=== PATIENT | female | born 1955 | race Two or more races ===

== ENCOUNTER → 2019-02-05 10:19 | Day surgery (SDC) | payer MEDICARE, BC ==
[~2019-02-05 10:19] MED LIST: Acetaminophen TAB* 325 MG PO PRN; Buffered Lidocaine 1% SYRIN* 1 ML/SYRINGE INTRADERM ONE; Bupivacaine 0.5%* 50 ML VIAL ONE; Dexamethasone IV* 4 MG/ML 1 ML (4 MG) ONE; DiMENhydriNATE IV* 50 MG/ML VIAL IV PUSH PRN; Lactated Ringers 1000 ML Bag* 1,000 ML IV SCH; Lidocaine 1% INJ* 10 MG/ML 30 ML SDV ONE; Lidocaine 2% PF * 5 ML VIAL ONE; Midazolam* 1 MG/ML 2 ML VIAL (2 MG) ONE; Naloxone* 0.4 MG/ML 1 ML VIAL IV PRN; Propofol* 500 MG/50 ML BTL ONE; ceFAZolin 2 GM PREMIX in ORs 2 GM/50 ML BAG IVPB ONE; fentaNYL* 50 MCG/ML 2 ML VIAL (100 MCG VIAL) IV PRN; fentaNYL* 50 MCG/ML 2 ML VIAL (100 MCG VIAL) ONE; oxyCODONE TAB* 5 MG TAB PO PRN
[2019-02-05 14:27] VITALS: BP 143/55
--- NOTE | 2019-02-05 22:46 | OP ---
DATE OF OPERATION: 02/05/19 - [facility] DATE OF : 51 SURGEON: Brain Muller DPM. ANESTHESIA: MAC local. PRE-OP DIAGNOSIS: Right foot plantar fasciitis. POST-OP DIAGNOSIS: Right foot plantar fasciitis. OPERATIVE PROCEDURE: Right foot plantar fasciotomy. ESTIMATED BLOOD LOSS: Less than 10 cc. IV FLUID: LR 1000 cc. DRAINS: None. SPECIMENS: None. DESCRIPTION OF PROCEDURE: The patient was taken to the operating room and was placed in the supine position. A time-out was called and the OR team agreed. The right foot was then blocked with 10 cc of 1% lidocaine plain to the posterior tibial nerve as well as the medial calcaneal nerve the incision line. Foot was then prepped and draped in a sterile manner. The right foot was then exsanguinated with an Esmarch bandage and the cuff was then inflated to 250 mmHg. Attention was then paid to the plantar aspect of the right foot. I followed the medial band of the plantar fascia down to its plantar attachment to the base of the plantar medial calcaneal tubercle, right calcaneus. I made a linear incision right over the site more towards the downward surface of the heel. I made the linear incision using a #15 blade. This was followed by sharp and blunt dissection starting from the epidermis, dermis, subcutaneous tissue, and down to the fascia. All bleeders were ligated and vital structures retracted from this site. I went down and cleared all the fatty subcutaneous tissue to get a full view of the plantar fascia. I went ahead and was able to get a full view and I was able to identify the medial band of the plantar fascia. Immediately, I noticed that it is dull side. It does not appear necrotic but it is highly fibrosed. It is not smooth. It has an angulating texture to it indicating consistent scarring and thickening at the band of the fascia. I went ahead and made a linear incision right over the site, I transected just the medial band of the plantar fascia. I went all the way down until I could see the underlying muscle belly. Once I was able to do that, the procedure was indeed completed. I went ahead and irrigated the site, closed this wound in a layered anatomical fashion with combination of a 3- 0 Polysorb as well as 4-0 nylon. I injected the site with 8 cc of 0.5% Marcaine plain as well as 8 mg of 2 cc of dexamethasone phosphate. The cuff was deflated. The foot was then placed in dry sterile dressing. The patient was taken to recovery room in stable condition. The patient was discharged in stable condition as well. I will see the patient in my office in 3 days. [id number]/CPS #: [id number] MTDD
== END | disposition home or self-care (01) ==
LOC: OR 10:19
PROVIDERS: ATTEND Podiatrist
DX: M72.2 Plantar fascial fibromatosis (principal); Z87.891 Personal history of nicotine dependence; M77.10 Lateral epicondylitis, unspecified elbow
CPT/HCPCS: J0690; J1100; J2250; J2704; J3010; J3490